=== PATIENT | male | born 1995 | race Caucasian/White ===

== ENCOUNTER 2017-03-28 12:16 | Emergency (ER) | payer MEDICAID, OTHER ==
[~2017-03-28] VITALS: Ht 182.9 cm; Wt 81.6 kg
[2017-03-28 12:55] VITALS: BP 133/74
--- NOTE | 2017-03-28 15:16 | NUR ---
Patient ambulated to [facility] to be evaluated as fast track.
--- NOTE | 2017-03-28 15:20 | NUR ---
Note undone in EDM - 03/28/17 at 1540 by [email or web address] /M BIB SELF C/O RIGHT LEG PAIN X3 DAYS AND LEFT KNEE PAIN X2 MONTHS.DENIES TRAUMA OR ACCIDENT. DENIES N/V/D; SKIN IS PINK/WARM/DRY; AAOX4 WITH EVEN AND STEADY GAIT; LUNGS CLEAR BL; HR EVEN AND REGULAR; PT DENIES ANY FEVER, CP, SOB, OR COUGH AT THIS TIME; PATIENT STATES PAIN OF 8/10 AT THIS TIME; VSS; PATIENT POSITIONED FOR COMFORT; HOB ELEVATED; BEDRAILS UP X2; BED DOWN. ER MD MADE AWARE OF PT STATUS.
--- NOTE | 2017-03-28 15:25 | NUR ---
PATIENT PRESENTS TO ED WITH C/O LEFT KNEE AND RIGHT THIGH . PT DENIES ANY FALL OR TRAUMA . DENIES N/V/D; SKIN IS PINK/WARM/DRY; AAOX4 WITH EVEN AND STEADY GAIT; LUNGS CLEAR BL; HR EVEN AND REGULAR; PT DENIES ANY FEVER, CP, SOB, OR COUGH AT THIS TIME; PATIENT STATES PAIN OF 8/10 AT THIS TIME; VSS;. ER MD MADE AWARE OF PT STATUS.
--- NOTE | 2017-03-28 15:31 | NUR ---
Dr. Haney evaluating patient in [facility].
[2017-03-28 15:49] VITALS: BP 128/71
--- NOTE | 2017-03-28 15:49 | NUR ---
Patient discharged with v/s stable. Written and verbal after care instructions given and explained. Patient alert, oriented and verbalized understanding of instructions. Ambulatory with steady gait. All questions addressed prior to discharge. ID band removed. Patient advised to follow up with PMD. Rx of DICLOFENAC SODIUM 75MG & FLEXERIL 10MG TAB given. Patient educated on indication of medication including possible reaction and side effects. Opportunity to ask questions provided and answered.
== END 2017-03-28 15:49 | disposition home or self-care (01) ==
LOC: MED 12:16
DX: S76.011A Strain of muscle, fascia and tendon of right hip, initial encounter (principal); S86.911A Strain of unspecified muscle(s) and tendon(s) at lower leg level, right leg, initial encounter; X58.XXXA Exposure to other specified factors, initial encounter; Y93.89 Activity, other specified; Y92.89 Other specified places as the place of occurrence of the external cause; Y99.8 Other external cause status

== ENCOUNTER 2017-10-28 18:18 | Emergency (ER) | payer OTHER ==
[~2017-10-28] VITALS: Ht 182.9 cm; Wt 90.3 kg
[2017-10-28 18:27] VITALS: BP 156/98
--- NOTE | 2017-10-28 19:37 | NUR ---
PATIENT SENT TO [facility] , WITH UNDERGROUND ROOF BOLTER.
--- NOTE | 2017-10-28 21:00 | NUR ---
PATIENT CALLED FOR BED ,NO ANSWER
--- NOTE | 2017-10-28 21:10 | NUR ---
PATIENT NO DFOR THE SECOND TIME , NO RESPONSE.
--- NOTE | 2017-10-28 21:19 | NUR ---
PATIENT CALLED FOR THE THIRD TIME ,NO RESPONSE. PATIENT LEFT WITHOUT BEING SEEN BY DR. HOUSTON. NO FURTHER CARE PROVIDED FOR PATIENT.
== END 2017-10-28 21:19 | disposition left against medical advice (07) ==
LOC: MED 18:18
DX: R05 Cough (principal); R51 Headache; Z53.21 Procedure and treatment not carried out due to patient leaving prior to being seen by health care provider
CPT/HCPCS: 71020; 99281

== ENCOUNTER 2022-10-04 10:12 | Emergency (ER) | payer BC, OTHER ==
[~2022-10-04] VITALS: Ht 182.9 cm; Wt 98.0 kg
[2022-10-04 10:33] VITALS: BP 130/69
--- NOTE | 2022-10-04 10:40 | NUR ---
27/M WALKED IN C/O LEFT 5TH FINGER SWELLING S/P PLAYING FOOTBALL X YESTERDAY. DENIES LOC. FINGER SWELLING AND BRUISING NOTED. NO OPEN WOUND. PMH: DENIES
[2022-10-04] MEDS ORDERED: IBUP-2213 PO (12:31)
--- NOTE | 2022-10-04 12:45 | NUR ---
Patient discharged with v/s stable. Written and verbal after care instructions given. Patient alert, oriented and verbalized understanding of instructions. Ambulatory with steady gait. All questions addressed prior to discharge. ID band removed. Patient advised to follow up with PMD. Rx of Ibuprofen given. Opportunity to ask questions provided and answered.
--- NOTE | 2022-10-04 12:47 | NUR ---
Chart checked and completed. The patient's care was reviewed and supervised by Daily Adame RN.
== END 2022-10-04 12:45 | disposition home or self-care (01) ==
LOC: MED 10:12
DX: S63.617A Unspecified sprain of left little finger, initial encounter (principal); X58.XXXA Exposure to other specified factors, initial encounter; Y93.89 Activity, other specified; Y92.89 Other specified places as the place of occurrence of the external cause; Y99.8 Other external cause status
CPT/HCPCS: 73140; 99283